=== PATIENT | female | born 1980 | race American Indian/Alaskan Native ===

== ENCOUNTER 2017-10-22 10:30 | Emergency (ER) | payer SELFPAY ==
--- NOTE | 2017-10-22 13:09 | Emergency Department Report ---
ED Abdominal Pain HPI - General Chief Complaint: Abdominal Pain Stated Complaint: WEAK Time Seen by Provider: 10/22/17 12:48 Source: patient, family Mode of arrival: Ambulatory Limitations: No Limitations - History of Present Illness -: Gradual - Related Data Previous Rx's Medication Instructions Recorded Last Taken Type Docusate Sodium [Colace] 100 mg PO BID #60 capsule 10/22/17 Unknown Rx Allergies Allergy/AdvReac Type Severity Reaction Status Date / Time No Known Allergies Allergy Unverified 10/22/17 10:34 ED Review of Systems ROS: Stated complaint: ABDOMINAL CRAMPING Other details as noted in HPI Comment: All other systems reviewed and negative Constitutional: malaise, weakness ED Past Medical Hx - Past Medical History Previous Medical History?: Yes Hx Hypertension: Yes Additional medical history: anemia. fibroids - Surgical History Past Surgical History?: Yes Additional Surgical History: . cyst removal - Family History Family history: no significant - Social History Smoking Status: Never Smoker Substance Use Type: None - Medications Home Medications: Home Medications Medication Instructions Recorded Confirmed Last Taken Type Docusate Sodium [Colace] 100 mg PO BID #60 capsule 10/22/17 Unknown Rx ED Physical Exam - General Limitations: No Limitations General appearance: alert, other (PALE) - Head Head exam: Present: atraumatic - Eye Eye exam: Present: normal appearance, PERRL, EOMI - ENT ENT exam: Present: mucous membranes moist - Neck Neck exam: Present: normal inspection - Respiratory Respiratory exam: Present: normal lung sounds bilaterally - Cardiovascular Cardiovascular Exam: Present: regular rate - GI/Abdominal GI/Abdominal exam: Present: soft, normal bowel sounds. Absent: distended, tenderness, guarding, rebound, rigid, diminished bowel sounds - Extremities Exam Extremities exam: Present: normal inspection, full ROM - Back Exam Back exam: Present: normal inspection, full ROM. Absent: tenderness, CVA tenderness (R), CVA tenderness (L) - Neurological Exam Neurological exam: Present: alert, oriented X3, CN II-XII intact - Psychiatric Psychiatric exam: Present: normal affect, normal mood - Skin Skin exam: Present: warm, dry, pallor ED Course Vital Signs 10/22/17 10/22/17 10:34 15:33 Temperature 98.2 F 98.8 F Pulse Rate 85 72 Respiratory 18 18 Rate Blood Pressure 160/96 Blood Pressure 128/77 [Right] O2 Sat by Pulse 100 98 Oximetry - Reevaluation(s) Reevaluation #1: 10/22/17 TO ER W FATIGUE A/C ANEMIA NOT TAKING MEDS- FE BC OF CONSTIPATION ON MENSES H/H NOTED DISCUSSED WITH DR KENNEDY FLUIDS IV TAKING PO DISCUSSED FE AND COLACE DC HOME W DC POC ED Medical Decision Making - Lab Data Result diagrams: 10/22/17 13:15 10/22/17 13:15 - Medical Decision Making SEE NOTE - Differential Diagnosis A/C ANEMIA Critical care attestation.: If time is entered above; I have spent that time in minutes in the direct care of this critically ill patient, excluding procedure time. ED Disposition Clinical Impression: Anemia, Hypokalemia Disposition: DC-01 TO HOME OR SELFCARE Is pt being admited?: No Does the pt Need Aspirin: No Condition: Stable Instructions: Menstruation (ED), Uterine Fibroids (ED), Iron Rich Diet (ED), Iron Deficiency Anemia (ED), Anemia (ED) Additional Instructions: REST FLUIDS STAY HYDRATED EAT IRON RICH DIET TAKE YOUR IRON INSTRUCTED ALONG WITH MED GIVEN TODAY FOLLOW UP WITH YOUR OBGYN REGARDING YOUR FIBROIDS AND YOUR PCP REGARDING YOU CHRONIC FE DEF ANEMIA [facility] HAS THE BLOODLESS TRANSFUSIONS IF YOU ARE INTERESTED IN GOING THAT ROUTE EAT A BANANA OR ORANGE JUICE DAILY TO REPLACE YOUR POTASSIUM Prescriptions: Docusate Sodium [Colace] 100 mg PO BID #60 capsule Referrals: PRIMARY CARE, [Primary Care Provider] - 3-5 Days [facility] [place] [Outside] - 3-5 Days [facility] [Outside] - 3-5 Days [facility] [Outside] - 3-5 Days Time of Disposition: 15:09
[2017-10-22 13:57] LABS: Alanine Aminotransferase 11 units/L (7-56); Albumin 4.1 g/dL (3.9-5); BUN/Creatinine Ratio 10; Blood Urea Nitrogen 5 mg/dL (7-17); Calcium 8.8 mg/dL (8.4-10.2); Hemolysis Index 8
[2017-10-22 14:03] LABS: Hematocrit 24.7 % (30.3-42.9); Hemoglobin 7.4 gm/dl (10.1-14.3); Mean Corpuscular HGB Conc 30 % (30-34); Mean Corpuscular Volume 73 fl (79-97); Platelet Count 207 K/mm3 (140-440); Red Blood Count 3.36 M/mm3 (3.65-5.03)
[2017-10-22 14:10] LABS: Mean Corpuscular Hemoglobin 22 pg (28-32); Red Cell Distribution Width 21.2 % (13.2-15.2)
[2017-10-22] MEDS ORDERED: K-DUR PO ONE (14:27)
[2017-10-22] MEDS ORDERED: NACL 0.9% 1000 ML 1,000 ML IV ONE (14:28)
[2017-10-22 15:16] LABS: Basophils % (Manual) 0 % (0.0-1.8); Total Cells Counted 100
[2017-10-22 15:17] LABS: Tear Drop Cells Few
[2017-10-22 15:18] LABS: Platelet Estimate Consistent w Auto
[2017-10-22 15:34] VITALS: BP 128/77
[2017-10-22 15:34] LABS: Bilirubin,Urine NEG (Negative); Blood,Urine MOD (Negative); Color,Urine Yellow (Yellow); Mucus,Urine 2+ /HPF; Nitrite,Urine NEG (Negative); Protein,Urine <15 mg/dL mg/dL (Negative)
[2017-10-22 15:37] LABS: HCG Qualitative,Urine Negative (Negative)
== END 2017-10-22 15:43 | disposition home or self-care (01) ==
LOC: ED 10:30
DX: E87.6 Hypokalemia (principal); D64.9 Anemia, unspecified; I10 Essential (primary) hypertension
CPT/HCPCS: 36415; 80053; 81001; 81025; 85007; 85025; 96360; 99283; J7030